=== PATIENT | female | born 1950 | race Hispanic/Latino ===

== ENCOUNTER 2023-03-24 06:17 | Observation (INO) | payer BC, MEDICARE ==
[2023-03-18 13:42] LABS: BASOPHILS # (AUTO) 0.04 K/uL (0.00-0.20); BASOPHILS % (AUTO) 0.6 % (0.0-5.0); EOSINOPHILS # (AUTO) 0.14 K/uL (0.00-0.70); EOSINOPHILS % (AUTO) 2.1 % (0.0-8.0); HEMATOCRIT 42.1 % (36-48); IMMATURE GRANULOCYTE ABSOLUTE 0.03 K/uL (0-1); LYMPHOCYTES # (AUTO) 1.7 K/uL (1.0-4.8); LYMPHOCYTES % (AUTO) 26.1 % (21.0-51.0); MEAN CORPUSCULAR HEMOGLOBIN 30.7 pg (27.0-33.0); MEAN CORPUSCULAR HGB CONC 32.8 g/dL (32.0-36.0); MEAN CORPUSCULAR VOLUME 93.8 fL (79-99); MONOCYTES # (AUTO) 0.5 K/uL (0.1-1.0); MONOCYTES % (AUTO) 7.9 % (3.0-13.0); NEUTROPHILS # (AUTO) 4.1 K/uL (1.8-7.7); NEUTROPHILS % (AUTO) 62.8 % (40.0-77.0); PLATELET COUNT (AUTO) 176 K/uL (130-400); RED BLOOD CELL COUNT(AUTO) 4.49 MIL/uL (4.00-5.50); RED CELL DISTRIBUTION WIDTH 12.7 % (11.0-15.5); WHITE BLOOD COUNT (AUTO) 6.6 K/uL (4.8-10.8)
[2023-03-18 13:49] VITALS: BP 138/64; PULSE 78; RESP 19
[2023-03-18 13:52] LABS: CREATININE 0.9 mg/dL (0.5-1.5); POTASSIUM 4.4 mmol/L (3.5-5.1)
[2023-03-18 13:54] LABS: INR < 0.93 (0.85-1.15); PROTHROMBIN TIME 10.3 SEC (9.6-11.6)
[2023-03-18 13:56] LABS: PARTIAL THROMBOPLASTIN TIME 26.9 SEC (26.3-35.5)
[2023-03-18 14:05] LABS: APPEARANCE,URINE CLEAR (CLEAR); BILIRUBIN,URINE NEGATIVE (NEGATIVE); COLOR,URINE LIGHT-YELLOW (YELLOW); GLUCOSE, URINE (UA) NEGATIVE (NEGATIVE); KETONES,URINE NEGATIVE (NEGATIVE); LEUKOCYTE ESTERASE ,URINE NEGATIVE Leu/uL (NEGATIVE); NITRATE,URINE NEGATIVE (NEGATIVE); OCCULT BLOOD,URINE NEGATIVE (NEGATIVE); PROTEIN,URINE NEGATIVE (NEGATIVE); UROBILINOGEN,URINE 0.2 mg/dL (0.2-1.0)
[2023-03-18 14:11] LABS: ADD UA MICROSCOPIC NO
[2023-03-24] VITALS (28 sets, daily range): BP systolic 115–146; BP diastolic 44–79; PULSE 53–80; RESP 11–19; O2SAT 96–98
[~2023-03-24] VITALS: Ht 154.9 cm; Wt 72.9 kg
[~2023-03-24 06:17] MED LIST: ACET-2123 PO; ALEN70TA80 PO; AMLO-258 PO; ATOR10 PO; CALC-1106 PO; CHOL200013 PO; FISH1CAP63 PO; LOSA25TA41 PO; MV-M1TAB46 PO; PSYL0.5245 PO
[2023-03-24] MEDS ORDERED: LACTATED RINGERS 1000ML 1,000 ML IV ONE (06:54)
[2023-03-24] MEDS: CEFAZOLIN SODIUM 2 GM VIAL ONE ×2 (07:36→14:25)
[2023-03-24] MEDS ORDERED: FAMOTIDINE 20MG VIAL IV ONE (12:32)
[2023-03-24] MEDS ORDERED: HYDROMORPHONE 1 MG INJ ONE (12:32)
[2023-03-24] MEDS ORDERED: ROPIVACAINE 0.5% 5MG/ML 30ML ONE (12:39)
[2023-03-24] MEDS ORDERED: LIDOCAINE PF 100MG/5ML (2%) SYRINGE 5ML ONE (13:32)
[2023-03-24] MEDS ORDERED: SUCCINYLCHOLINE CHLORIDE 20 MG/ML 10 ML VIAL ONE (13:32)
[2023-03-24] MEDS ORDERED: GLYCOPYRROLATE 1 MG/5 ML SYRINGE ONE (13:33)
[2023-03-24] MEDS ORDERED: ROCURONIUM 10MG/1ML SYR 10 MG/ML ML ONE (13:33)
[2023-03-24] MEDS ORDERED: FENTANYL CITRATE PF 50 MCG/1 ML 2ML VIAL ONE (13:33)
[2023-03-24] MEDS ORDERED: PROPOFOL 10 MG/ML 20ML VIAL IV ONE (13:33)
[2023-03-24] MEDS ORDERED: EPHEDRINE SULFATE 50 MG/ML AMPULE ONE (14:22)
[2023-03-24] MEDS: TRANEXAMIC ACID 1000MG/10ML ONE ×2 (14:22→16:34)
[2023-03-24] MEDS ORDERED: ONDANSETRON 4MG INJ ONE ×2 (14:47→17:15)
[2023-03-24] MEDS: KETOROLAC 15MG/ML VIAL (15MG/ML) IV SCH ×2 (16:30→18:25)
[2023-03-24] MEDS ORDERED: CYCLOBENZAPRINE HCL 10 MG TABLET PO PRN (16:30)
[2023-03-24] MEDS ORDERED: FERROUS FUMARATE 324 MG TABLET PO PRN (16:30)
[2023-03-24] MEDS ORDERED: KCL 20 MEQ ERTAB PO PRN (16:30)
[2023-03-24] MEDS ORDERED: POTASSIUM CHLORIDE 10% ELIXIR 20 MEQ/15 ML UDCUP PO PRN (16:30)
[2023-03-24] MEDS ORDERED: TRAMADOL HCL 50 MG TABLET PO PRN (16:30)
[2023-03-24] MEDS: 0.9%NACL 1000ML 1,000 ML IV SCH (16:30)
[2023-03-24] MEDS ORDERED: ONDANSETRON 4MG INJ IVP PRN (16:30)
[2023-03-24] MEDS ORDERED: POTASSIUM CHLORIDE 20MEQ/100ML 100 ML IV PRN (16:30)
[2023-03-24] MEDS ORDERED: CALCIUM CARB 500MG PO PRN (16:30)
[2023-03-24] MEDS ORDERED: NEOSTIGMINE 5MG/5ML SYR IV ONE (16:36)
[2023-03-24] MEDS ORDERED: MEPERIDINE-PF 25 MG/ML SYG ONE (17:14)
[2023-03-24] MEDS ORDERED: KETOROLAC 15MG/ML VIAL (15MG/ML) ONE (17:45)
[2023-03-24] MEDS: GABAPENTIN 100 MG CAPSULE PO SCH (21:07)
[2023-03-24] MEDS: CEFAZOLIN SODIUM 2 GM VIAL IVPB SCH (21:07)
[2023-03-24] MEDS: DOCUSATE SODIUM 100 MG CAP PO SCH (21:07)
[2023-03-25 00:15] VITALS: BP 129/66; PULSE 77
[2023-03-25] MEDS: 0.9%NACL 1000ML 1,000 ML IV SCH ×2 (02:30→12:30)
[2023-03-25 04:00] VITALS: BP 123/75; PULSE 81; RESP 16
[2023-03-25 04:33] LABS: HEMATOCRIT 33.3 % (36-48); MEAN CORPUSCULAR HEMOGLOBIN 31.2 pg (27.0-33.0); MEAN CORPUSCULAR HGB CONC 34.2 g/dL (32.0-36.0); MEAN CORPUSCULAR VOLUME 91.2 fL (79-99); RED BLOOD CELL COUNT(AUTO) 3.65 MIL/uL (4.00-5.50); RED CELL DISTRIBUTION WIDTH 12.5 % (11.0-15.5); WHITE BLOOD COUNT (AUTO) 9.3 K/uL (4.8-10.8)
[2023-03-25 04:43] LABS: CREATININE 0.9 mg/dL (0.5-1.5); POTASSIUM 4.2 mmol/L (3.5-5.1)
[2023-03-25] MEDS: CEFAZOLIN SODIUM 2 GM VIAL IVPB SCH (05:13)
[2023-03-25] MEDS: HYDROCODONE/ACETAMINOPHEN 5/325 MG TAB PO PRN ×2 (06:22→13:00)
[2023-03-25 08:00] VITALS: BP 126/68; PULSE 79; RESP 18; O2SAT 98
[2023-03-25] MEDS: POLYETHYLENE GLYCOL 3350 17 GM POWD.PACK PO SCH (08:39)
[2023-03-25] MEDS: ASPIRIN 325MG EC TAB PO SCH (08:39)
[2023-03-25] MEDS: DOCUSATE SODIUM 100 MG CAP PO SCH ×2 (08:39→20:37)
[2023-03-25] MEDS: GABAPENTIN 100 MG CAPSULE PO SCH ×3 (08:39→20:37)
[2023-03-25] MEDS: KETOROLAC 15MG/ML VIAL (15MG/ML) IV SCH (08:40)
[2023-03-25 11:56] VITALS: BP 104/43; PULSE 84; RESP 18
[2023-03-25 16:00] VITALS: BP 106/56; PULSE 77; RESP 18
[2023-03-25] MEDS ORDERED: KETOROLAC 15MG/ML VIAL (15MG/ML) IV PRN (16:30)
[2023-03-25 20:00] VITALS: BP 119/58; PULSE 85; RESP 20; O2SAT 97
[2023-03-26] VITALS: BP 152/70; PULSE 99; RESP 18
[2023-03-26] MEDS: HYDROCODONE/ACETAMINOPHEN 5/325 MG TAB PO PRN ×2 (00:30→08:44)
[2023-03-26 04:00] VITALS: BP 105/62; PULSE 92; RESP 18
[2023-03-26 08:00] VITALS: BP 114/60; PULSE 92; RESP 18; O2SAT 97
[2023-03-26] MEDS ORDERED: LACTULOSE 20 GM/30 ML UDCUP PO PRN (08:00)
[2023-03-26] MEDS: GABAPENTIN 100 MG CAPSULE PO SCH ×2 (08:41→14:30)
[2023-03-26] MEDS: POLYETHYLENE GLYCOL 3350 17 GM POWD.PACK PO SCH (08:41)
[2023-03-26] MEDS: DOCUSATE SODIUM 100 MG CAP PO SCH (08:41)
[2023-03-26] MEDS: ASPIRIN 325MG EC TAB PO SCH (08:41)
[2023-03-26 12:00] VITALS: BP 116/74; PULSE 90; RESP 18
[2023-03-26] MEDS ORDERED: HYDR-4060 PO (12:01)
[2023-03-26] MEDS ORDERED: DOCU-116 PO (12:01)
[2023-03-26] MEDS ORDERED: ASPI-891 PO (12:01)
[2023-03-26] MEDS ORDERED: CYCL-309 PO (12:01)
[2023-03-26] MEDS ORDERED: GABA100C PO (12:01)
[2023-03-26] MEDS ORDERED: ONDANSETRON 4MG TABLET PO PRN (13:00)
[2023-03-27] MEDS ORDERED: BISACODYL 10 MG SUPP.RECT RC PRN (16:30)
== END 2023-03-26 15:30 | disposition home health service (06) ==
LOC: DAH 06:17 → DAHIP 06:18 → DAH 06:18 → 4BH 18:30
PROVIDERS: ADMIT Student in an Organized Health Care Education/Training Program; ATTEND Student in an Organized Health Care Education/Training Program
DX: M16.12 Unilateral primary osteoarthritis, left hip (principal); R26.89 Other abnormalities of gait and mobility; D62 Acute posthemorrhagic anemia; I10 Essential (primary) hypertension; E78.00 Pure hypercholesterolemia, unspecified; Z96.651 Presence of right artificial knee joint; Z90.710 Acquired absence of both cervix and uterus; Z91.89 Other specified personal risk factors, not elsewhere classified
CPT/HCPCS: 82040; 80048 ×2; 85025; 85610; 85730; 87088; 84134; 86140; 81003; 36415 ×2; 87641; 64447; 27130; 96374; 96375; 73502; 73521; 96376; 85027; 97161; 97116 ×4; 97530 ×6; G0378 ×42; A4663; C1776; J7120; J3490 ×4; J3010; J1170; J2710; J0330; J2001; J2704; J2405 ×2; J2175; J2795; J1885 ×2; J0690 ×3; A4649 ×3; G0168; A6255; A5120; A4215; A4223; A4222; A4221; J7030 ×2